=== PATIENT | male | born 1990 | race Hispanic/Latino ===

== ENCOUNTER 2022-12-22 12:57 | Emergency (ER) | payer OTHER ==
[2022-12-22] MEDS ORDERED: Sodium Chloride 0.9% 1000 ML 1,000 ML IV STA (13:47)
[2022-12-22] MEDS ORDERED: ROCEPHIN 2 Gm-D5w 50ML BAG** 2 G/50 ML IVPB IV STA (13:49)
[2022-12-22] MEDS ORDERED: ROCEPHIN 2 Gm-D5w 50ML BAG** 2 G/50 ML IVPB IV ONE (14:01)
[2022-12-22] MEDS ORDERED: Sodium Chloride 0.9% 1000 ML 1,000 ML ONE (14:01)
[2022-12-22 14:21] VITALS: PULSE 89; O2SAT 98
[2022-12-22 14:22] LABS: Absolute Neutrophil Ct (ANC) 7.14 x10^3/uL (1.4-6.9); BASOPHIL % 0.7 % (0.0-0.4); Basophil (Absolute #) 0.07 x10^3/uL (0-0.4); Eosinophil % 0.5 % (0.00-5.0); Eosinophil (Absolute #) 0.05 x10^3/uL (0-0.5); Hematocrit 44.9 % (42-50); Hemoglobin 14.8 g/dL (12.5-18.0); IMMATURE GRAN # 0.03 x10^3u/L (0.00-0.03); IMMATURE GRAN % 0.3 % (0.00-0.4); Lymphocyte (Absolute #) 1.48 x10^3/uL (1.0-4.6); Lymphocytes % 15.5 % (24.0-44.0); Mean Cell Volume 90.7 fL (78-100); Mean Corpuscular Hemoglobin 29.9 pg (26-32); Mean Platelet Volume 10.1 fL (7.5-11.0); Monocyte (Absolute #) 0.77 x10^3/uL (0.0-1.3); Monocytes % 8.1 % (0.0-12.0); Neutrophil % 74.9 % (36.0-66.0); Platelet Count 238 x10^3/uL (150-450); Red Blood Count 4.95 x10^6/uL (4.1-5.6); Red Cell Distribution Width 13.2 % (11.5-14.0); White Blood Count 9.5 x10^3/uL (4.0-10.5)
[2022-12-22 14:31] LABS: ALKALINE PHOSPHATASE 64 U/L (38-126); BLOOD UREA NITROGEN 13 mg/dL (9-20); CHLORIDE 105 mmol/L (98-107); Calcium 8.3 mg/dL (8.4-10.2); Carbon Dioxide 24 mmol/L (22-30); Creatinine 1 0.99 mg/dL (0.66-1.25); EST GLOMERULAR FILTRATION RATE > 60.0 ML/MIN; Glucose 110 mg/dL (74-106); SGOT/AST 30 U/L (17-59); SGPT/ALT 31 U/L (0-50); SODIUM 138 mmol/L (137-145); Total Protein 7.2 g/dL (6.3-8.2)
--- NOTE | 2022-12-22 14:51 | ERPHSYRPT ---
- History of Present Illness Time Seen by Provider: 12/22/22 13:30 Patient Subjective Stated Complaint: Left leg pain/injury Triage Nursing Assessment: Patient ambulated back to ED and transferred self to bed. Patient A+O X 3. Patient's skin pink, warm and dry. Patient states on Tuesday while at work a piece of rebar hit him in the left bernard. Patient was seen in [facility] at [facility] and was dx with cellulitis and prescribed Bactrim and Bactroban and was given a tetanus. Patient states the area is bigger and is causing pain to move up his leg 01/27. Patient has wound noted to middle of bernard that is red, warm with black center. Physician History: Patient is a 32-year-old male who presents after an injury last Tuesday or 5 days ago which occurred at work. He was hit in the left thigh over the tibia mid shaft with a piece of rebar. He was seen at [facility] in the quick care clinic and was given Bactroban and Septra the wound has gotten more inflamed and larger and pain has is now radiating up the thigh he is also had a fever to 103 apparently. Method of Injury: direct blow Occurred: days ago (5) Quality: intermittent, aching Severity of Pain-Max: moderate Severity of Pain-Current: moderate Lower Extremities Pain: leg: left Allergies/Adverse Reactions: No Known Drug Allergies Allergy (Unverified 12/22/22 13:16) Hx Tetanus, Diphtheria Vaccination/Date Given: Yes (2022) Hx Influenza Vaccination/Date Given: Yes Hx Pneumococcal Vaccination/Date Given: No Immunizations Up to Date: Yes Travel Risk - International Travel Have you traveled outside of the country in past 3 weeks: No - Coronavirus Screening Are you exhibiting any of the following symptoms?: No Close contact with a COVID-19 positive Pt in past 14-21 Days: No - Vaccine Status Have you recieved a Covid-19 vaccination: No - Review of Systems Constitutional: No Fever, No Chills Eyes: No Symptoms Ears, Nose, & Throat: No Symptoms Respiratory: No Cough, No Dyspnea Cardiac: No Chest Pain, No Edema, No Syncope Abdominal/Gastrointestinal: No Abdominal Pain, No Nausea, No Vomiting, No Diarrhea Genitourinary Symptoms: No Dysuria Musculoskeletal: No Back Pain, No Neck Pain Skin: No Rash Neurological: No Dizziness, No Focal Weakness, No Sensory Changes Psychological: No Symptoms Endocrine: No Symptoms All Other Systems: Reviewed and Negative - Past Medical History Pertinent Past Medical History: No Neurological History: No Pertinent History ENT History: No Pertinent History Cardiac History: No Pertinent History Respiratory History: No Pertinent History Endocrine Medical History: No Pertinent History Musculoskeletal History: No Pertinent History GI Medical History: No Pertinent History History: No Pertinent History Psycho-Social History: No Pertinent History Male Reproductive Disorders: No Pertinent History - Past Surgical History Past Surgical History: Yes Neuro Surgical History: No Pertinent History Cardiac: No Pertinent History Respiratory: No Pertinent History Gastrointestinal: No Pertinent History Genitourinary: No Pertinent History Musculoskeletal: Orthopedic Surgery Male Surgical History: No Pertinent History Other Surgical History: Right elbow surgery - Social History Smoking Status: Current every day smoker How long have you smoked: years Exposure to second hand smoke: Yes Drug Use: none Patient Lives Alone: No - Nursing Vital Signs Nursing Vital Signs: Initial Vital Signs Temperature 98.3 F 12/22/22 13:17 Pulse Rate 96 H 12/22/22 13:17 Respiratory Rate 18 12/22/22 13:17 Blood Pressure 121/86 12/22/22 13:17 O2 Sat by Pulse Oximetry 100 12/22/22 13:17 Pain Scale Pain Intensity 7 - Physical Exam General Appearance: mild distress Eyes, Ears, Nose, Throat Exam: moist mucous membranes Neck Exam: non-tender, supple Cardiovascular/Respiratory Exam: chest non-tender, normal breath sounds, regular rate/rhythm, no respiratory distress Gastrointestinal/Abdominal Exam: non-tender, guarding Back Exam: normal inspection, No vertebral tenderness Hips Exam: left: soft tissue tenderness (Tenderness and enlarged lymph node in the left inguinal area), bilateral: non-tender Legs Exam: left leg: soft tissue tenderness (Ulcerated area midshaft right tibia with erythema and ulceration), swelling Knees Exam: bilateral knee: non-tender, normal inspection Ankle Exam: bilateral ankle: non-tender, normal inspection, normal range of motion Foot Exam: bilateral foot: non-tender, normal inspection, normal range of motion Neuro/Tendon Exam: normal sensation, normal motor functions Mental Status Exam: alert, oriented x 3, cooperative Skin Exam: normal color, warm, dry SpO2 Interpretation: normal SpO2: 98 O2 Delivery: Room Air - Course Nursing assessment & vital signs reviewed: Yes - Radiology Exams Left Lower Leg X-ray Interpretation: Interpreted by me, Reviewed by me Ordered Tests: Active Orders 24 hr Category Date Time Status IV Insertion STAT Care 12/22/22 13:52 Active LOWER LEG Stat Exams 12/22/22 13:48 Taken BLOOD CULTURE Stat Lab 12/22/22 13:55 Received CBC W DIFF Stat Lab 12/22/22 14:15 Completed CMP Stat Lab 12/22/22 14:15 Completed CULTURE,WOUND Stat Lab 12/22/22 13:52 Received Lactic Acid Stat Lab 12/22/22 13:47 Completed Medication Summary Discontinued Medications Generic Name Dose Route Start Last Admin Trade Name Freq PRN Reason Stop Dose Admin Sodium Chloride 1,000 mls @ 999 mls/hr 12/22/22 13:47 12/22/22 14:04 Sodium Chloride 0.9% 1000 Ml IV 12/22/22 14:47 999 mls/hr .Q1H1M STA Administration Ceftriaxone Sodium/Dextrose 2 g in 50 mls @ 100 mls/hr 12/22/22 13:49 12/22/22 14:46 Rocephin 2 Gm-D5w 50ml Bag IV 12/22/22 14:18 Infused STAT STA Infusion Sodium Chloride Confirm 12/22/22 14:01 Sodium Chloride 0.9% 1000 Ml Administered 12/22/22 14:02 Dose 1,000 mls @ ud .ROUTE .STK-MED ONE Ceftriaxone Sodium/Dextrose Confirm 12/22/22 14:01 Rocephin 2 Gm-D5w 50ml Bag Administered 12/22/22 14:02 Dose 2 g in 50 mls @ ud IV .STK-MED ONE Lab/Rad Data: Laboratory Result Diagrams 12/22/22 14:15 12/22/22 14:15 Laboratory Results 12/22/22 12/22/22 12/22/22 Range/Units 14:15 14:15 13:47 WBC 9.5 (4.0-10.5) x10^3/uL RBC 4.95 (4.1-5.6) x10^6/uL Hgb 14.8 (12.5-18.0) g/dL Hct 44.9 (42-50) % MCV 90.7 (78-100) fL MCH 29.9 (26-32) pg MCHC 33.0 (32-36) g/dL RDW 13.2 (11.5-14.0) % Plt Count 238 (150-450) x10^3/uL MPV 10.1 (7.5-11.0) fL Gran % 74.9 H (36.0-66.0) % Immature Gran % (Auto) 0.3 (0.00-0.4) % Nucleat RBC Rel Count 0.0 (0.00-0.1) % Eos # (Auto) 0.05 (0-0.5) x10^3/uL Immature Gran # (Auto) 0.03 (0.00-0.03) x10^3u/L Absolute Lymphs (auto) 1.48 (1.0-4.6) x10^3/uL Absolute Monos (auto) 0.77 (0.0-1.3) x10^3/uL Absolute Nucleated RBC 0.00 (0.00-0.01) x10^3u/L Lymphocytes % 15.5 L (24.0-44.0) % Monocytes % 8.1 (0.0-12.0) % Eosinophils % 0.5 (0.00-5.0) % Basophils % 0.7 (0.0-0.4) % Absolute Granulocytes 7.14 H (1.4-6.9) x10^3/uL Basophils # 0.07 (0-0.4) x10^3/uL Sodium 138 (137-145) mmol/L Potassium 4.0 (3.5-5.1) mmol/L Chloride 105 (98-107) mmol/L Carbon Dioxide 24 (22-30) mmol/L Anion Gap 13.0 (5-15) MEQ/L BUN 13 (9-20) mg/dL Creatinine 0.99 (0.66-1.25) mg/dL Estimated GFR > 60.0 ML/MIN Glucose 110 H (74-106) mg/dL Lactic Acid 1.2 (0.4-2.0) Calcium 8.3 L (8.4-10.2) mg/dL Total Bilirubin 0.60 (0.2-1.3) mg/dL AST 30 (17-59) U/L ALT 31 (0-50) U/L Alkaline Phosphatase 64 (38-126) U/L Serum Total Protein 7.2 (6.3-8.2) g/dL Albumin 4.0 (3.5-5.0) g/dL - Progress Progress: unchanged Progress Note: 12/22/22 14:58 Patient will be continued on Bactrim and will also receive Keflex. There is no evidence of osteomyelitis or foreign body or fracture. Counseled pt/family regarding: diagnosis, need for follow-up, rad results Medical Desision Making - Independent Historian Additional History obtained from: Relative/friend - Diagnostic Testing Diagnostic test were ordered, analyzed, and reviewed by me: Yes Radiological Interpretation: Interpreted by me, Reviewed by me - Risk of complications The pt has a mod risk of morbidity or mortality based on: Need for prescription drug management - Departure Departure Disposition: Home Clinical Impression: Puncture wound of left lower leg Condition: Stable Critical Care Time: No Referrals: DOCTOR,NO FAMILY [Primary Care Provider] - Follow up/PCP as directed Instructions: Wound Care (DC) Prescriptions: Hydrocodone/Acetaminophen [Hydrocodone-Acetamin 5-325 mg] 1 tab PO Q6HPRN PRN 3 Days #12 tablet MDD 4 PRN Reason: Pain Cephalexin Mh 500 mg [Keflex 500 mg] 500 mg PO Q6H 10 Days #40 cap
[2022-12-22 15:04] VITALS: BP 112/68
--- NOTE | 2022-12-23 00:07 | XRAY ---
Indication: Swelling. Injury with metal. Foreign body. Comparison: None 2 view left lower leg negative for radiopaque foreign body. No bony, articular, or soft tissue abnormalities.
== END 2022-12-22 15:25 | disposition home or self-care (01) ==
LOC: ED 12:57
DX: S81.832A Puncture wound without foreign body, left lower leg, initial encounter (principal); W22.8XXA Striking against or struck by other objects, initial encounter; Y99.0 Civilian activity done for income or pay; Z28.310 Unvaccinated for COVID-19; Z72.0 Tobacco use
CPT/HCPCS: 36000; 36415; 73590; 80053; 83605; 85025; 87040; 87070; 96365; 99284; J0696